=== PATIENT | male | born 1980 | race Hispanic/Latino ===

== ENCOUNTER → 2022-02-21 | Outpatient (CLI) | payer BC | LOC: SLEEP 17:00 | PROVIDERS: ATTEND Internal Medicine | DX: G47.33 Obstructive sleep apnea (adult) (pediatric) (principal); G47.10 Hypersomnia, unspecified; F90.9 Attention-deficit hyperactivity disorder, unspecified type; I10 Essential (primary) hypertension | CPT/HCPCS: 0223U; 36415; 95811 ==